=== PATIENT | female | born 1930 | race African-American/Black ===

== ENCOUNTER 2016-07-31 18:03 | Inpatient (IN) | payer MEDICARE, MEDICAID ==
[2016-07-31] MEDS ORDERED: hydrALAZINE IV* 20 MG/ML VIAL IV SLOW PU PRN (20:05)
--- NOTE | 2016-07-31 22:07 | RAD ---
Indication: RIGHT side abdominal pain radiating to the LEFT. Comparison: July 15, 2015 Technique: Supine and LEFT lateral decubitus abdomen views. Report: No evidence for free intraperitoneal air evident on the LEFT lateral decubitus view. Sewing needle morphology metallic foreign body at the level of the hepatic flexure of the colon. Multiple disc morphology metallic foreign bodies measuring up to 2 cm diameter at the level of the proximal transverse colon. No dilated bowel loops to indicate bowel obstruction. Unremarkable soft tissue contours. Nonspecific peripheral soft tissue calcifications. IMPRESSION: Multiple metallic foreign bodies including a needle likely within the RIGHT colon. No evidence for bowel obstruction or free intraperitoneal air.
--- NOTE | 2016-07-31 22:14 | HP ---
HISTORY AND PHYSICAL: DATE OF ADMISSION: 07/30/16 PRIMARY CARE PHYSICIAN: None. ATTENDING PHYSICIAN: Dr. Pura Jorge *(dictation provided by Estrella Magallanes, ENEDINA) . CHIEF COMPLAINT: Abdominal pain, nausea, vomiting. HISTORY OF PRESENT ILLNESS: Ms. Sorensen is an 85-year-old female with a past medical history of hypertension, coronary artery disease, and schizophrenia who presents to the hospital today with abdominal pain, nausea, and vomiting. In June of 2015, patient had laparoscopic surgery for a small bowel obstruction at which time a rolled up $[address] scan showed what appeared to be several coins in the bowel as well but these could not be identified during the surgery and it was felt that they would likely pass on their own. Ms. Sorensen is a reasonable historian, but her story is corroborated by that found in the medical records sent from [facility]. Per the report, Ms. Sorensen was in her normal state of health up until yesterday. It is reported that she was vomiting since midnight last evening. They transferred her to [facility] where she had a CT scan of the abdomen and pelvis, which showed concern for multilobar pneumonia and a small bowel obstruction with concern for presence of foreign body such as coins. In addition to these abnormal images, the patient has white blood cell count elevated to 23. The remainder of her labs are normal. Based on Ms. Sorensen' presentation with concern for small bowel obstruction and multilobar pneumonia with possible aspiration, Hospital Medicine was called for direct admission. PAST MEDICAL HISTORY: 1. Hypertension. 2. Coronary artery disease. 3. Dementia. 4. Schizophrenia. 5. History of PE. 6. History of abdominal surgery as a child. 7. History of exploratory laparotomy with lysis of adhesions, removal of foreign body, June 2015. MEDICATIONS: 1. Mylanta 30 mL p.o. q.4 hours p.r.n. 2. Ferrous sulfate 325 mg p.o. t.i.d. 3. Haloperidol 1 mg p.o. at bedtime. 4. Ibuprofen 600 mg p.o. q. 6 hours p.r.n. 5. Omeprazole 40 mg p.o. daily. 6. Senna 1 tab p.o. daily. 7. Vitamin E 400 units p.o. daily. 8. Amlodipine 10 mg p.o. daily. ALLERGIES: To TYLENOL. FAMILY HISTORY: Reviewed, noncontributory. SOCIAL HISTORY: No report of alcohol, tobacco, or drug use. The patient lives at the [facility] and states her sister is the healthcare proxy. REVIEW OF SYSTEMS: A 14-point review of systems was completed with Ms. Sorensen and all those not mentioned above were negative. PHYSICAL EXAMINATION GENERAL: Ms. Sorensen is lying in the bed. She is in no acute distress. She is calm and cooperative with my examination. VITAL SIGNS: Temperature 98.9, pulse rate 88, respiratory rate 16, O2 saturation 97% on room air, blood pressure 121/48. LUNGS: Somewhat diminished in the bases, but otherwise clear. There is good aeration. No accessory muscle use. HEART: S1, S2. No murmur, rub, or gallop and regular. ABDOMEN: Soft. There is tenderness to palpation along the right lower to mid quadrants. The belly is soft. Bowel sounds are hyperactive. EXTREMITIES: No cyanosis or edema. NEUROLOGIC: She is alert and oriented. She know she is in the hospital, but is unable to tell me that she is at [facility], otherwise she is clear and coherent with her answers. She moves all extremities equally. There is no facial asymmetry or focal weakness. Extraocular movements are intact. SKIN: Intact. DIAGNOSTIC STUDIES/LAB DATA: CBC and basic metabolic panel are pending up in the labs from [facility]. I note that her white blood cell count was 23. CT abdomen and pelvis from [facility] notes small bowel obstruction and concern for presence of foreign body likely coins. ASSESSMENT: Ms. Sorensen is an 85-year-old female who presents today to the hospital with concern for nausea, vomiting, abdominal pain with small bowel obstruction likely secondary to foreign body ingestion as well as question of multilobar pneumonia with possible aspiration. Our plans are for inpatient admission as I expect her length of stay to be greater than 2 days for the followin. Small bowel obstruction: The patient will be n.p.o. She will have an NG tube placed. Dr. Shearer from Surgery has been consulted and will be seeing her tomorrow. A follow up abdominal x-ray has been ordered for a.m. 2. Pneumonia: Our concern is that this is due to aspiration but certainly could also reflect the community-acquired pneumonia. The patient will have antibiotics with Levaquin and Flagyl. Her white blood cell count is elevated. Lactic acid was 1.7. It will be verified that she had blood cultures sent as well. 3. Dementia and schizophrenia. Plan to continue Haldol IV. 4. Hypertension. Plan to hold amlodipine and provide her with hydralazine p.r.n. 5. DVT prophylaxis. Heparin subcu. 6. Code status. Full code. 7. Disposition to medical floor. TIME SPENT: Approximately 60 minutes were spent on the admission of this patient, more than half of the time was spent with the patient at the bedside reviewing the events leading up to this hospitalization, performing the physical examination, and reviewing the plan of care. ESTRELLA MAGALLANES, ENEDINA [id number]/CPS #: [id number] Addendum: Abdominal xray this evening shows persistent coin like objects in patient's right lower quadrant as well as the appearance of a new needle in the mid right quadrant. Dr. Shearer was updated. [facility]
[2016-07-31] MEDS: Haloperidol INJ IV/IM* 5 MG/ML AMP IV SLOW PU SCH (22:56)
[2016-07-31] MEDS: NS 0.9% 1000 ML* 1,000 ML IV SCH (22:57)
[2016-07-31] MEDS: metroNIDAZOLE IV 500 MG/100ML* 500 MG/100 ML BAG IVPB SCH (22:57)
[2016-08-01] MEDS: Levofloxacin 750 MG IVPREMIX(* 750 MG/150 ML BAG IVPB SCH (01:01)
[2016-08-01] MEDS: Heparin VIAL(*) 5000 UNITS/ML VIAL (FIVE THOUSAND) SUBCUT SCH ×5 (01:02→23:26)
[2016-08-01 06:14] LABS: Hematocrit 29 % (35-47); Hemoglobin 9.1 g/dl (12.0-16.0); Mean Corpuscular HGB Conc 32 g/dl (31-36); Mean Corpuscular Hemoglobin 26 pg (27-31); Mean Corpuscular Volume 80 fL (80-97); Mean Platelet Volume 8 um3 (7.4-10.4); Red Blood Count 3.54 10^6/ul (4.0-5.4); Red Cell Distribution Width 17 % (10.5-15)
[2016-08-01] MEDS: metroNIDAZOLE IV 500 MG/100ML* 500 MG/100 ML BAG IVPB SCH ×3 (06:30→23:22)
[2016-08-01 08:12] LABS: BUN/Creatinine Ratio 13.9 (8-20); Calcium 8.3 mg/dL (8.6-10.3); EGFR African American 99.5 (>60); EGFR Non-African American 77.4 (>60); Potassium 4.1 mmol/L (3.5-5.0)
--- NOTE | 2016-08-01 08:25 | RAD ---
INDICATION: Foreign body ingestion COMPARISON: July 31, 2016 TECHNIQUE: Erect and supine views of the abdomen are submitted. FINDINGS: Bones: There are no acute bony findings. Soft tissues: The soft tissues appear normal. The psoas margins are sharp. Bowel gas pattern: Normal. No obstruction. No free air. Calcifications: There are no abnormal calcifications. Other: There are coins and/or button batteries projected over the right colon and there is a needle projected over the right colon. The position of these foreign bodies has not changed. IMPRESSION: MULTIPLE FOREIGN BODIES
--- NOTE | 2016-08-01 10:59 | PN ---
Subjective Date of Service: 08/01/16 Interval History: Patient seen and examined at bedside. Pt states that she is having abdominal pain. Pt denies eating any foreign objects such as coins or a sewing needle. Denies fever, chills, shortness of breath, chest discomfort, N/V/D. Family History: Unchanged from Admission Social History: Unchanged from Admission Past Medical History: Unchanged from Admission Objective Active Medications: Haloperidol Lactate (Haldol Inj Iv/Im*) 1 mg IV SLOW PU BEDTIME KARL Heparin Sodium (Porcine) (Heparin Vial(*)) 5,000 units SUBCUT Q8HR KARL Hydralazine HCl (Apresoline Iv*) 5 mg IV SLOW PU Q6H PRN Reason: SBP > 185 Levofloxacin/Dextrose (Levaquin 750 Mg Ivpremix(*)) 750 mg in 150 mls @ 100 mls /hr IVPB Q24H KARL Metronidazole/Sodium Chloride (Flagyl 500 Mg Ivpb*) 500 mg in 100 mls @ 100 mls /hr IVPB Q8H KARL Sodium Chloride (Ns 0.9% 1000 Ml*) 1,000 mls @ 125 mls/hr IV PER RATE [facility] Vital Signs 07/31/16 07/31/16 07/31/16 18:34 18:43 18:52 Temperature 98.9 F Pulse Rate 88 Respiratory 16 16 18 Rate Blood Pressure 121/48 (mmHg) O2 Sat by Pulse 97 Oximetry 07/31/16 07/31/16 07/31/16 20:00 23:50 23:55 Temperature 98 F Pulse Rate 89 Respiratory 16 16 Rate Blood Pressure 128/52 (mmHg) O2 Sat by Pulse 97 Oximetry 08/01/16 08/01/16 02:41 07:35 Temperature 98.0 F 98.5 F Pulse Rate 90 86 Respiratory 16 18 Rate Blood Pressure 114/45 127/52 (mmHg) O2 Sat by Pulse 97 98 Oximetry Oxygen Devices in Use Now: None Appearance: NAD, laying in bed. Eyes: No Scleral Icterus, PERRLA Ears/Nose/Mouth/Throat: NL Teeth, Lips, Gums, Mucous Membranes Moist Neck: NL Appearance and Movements; NL JVP, Trachea Midline Respiratory: Symmetrical Chest Expansion and Respiratory Effort, Clear to Auscultation - , diminished. Cardiovascular: NL Sounds; No Murmurs; No JVD, RRR Abdominal: - - Bowel sounds prresent, abdomen large, soft, tender. Extremities: No Edema Skin: No Rash or Ulcers Neurological: NL Muscle Strength and Tone, - - Alert and Oriented to Person and Place. Consufed. Lines/Tubes/Other Access: Clean, Dry and Intact Peripheral IV - site benign. Result Diagrams: 08/01/16 05:47 08/01/16 05:47 Assess/Plan/Problems-Billing Assessment: Ms. Sorensen is am 85 yo female with PMH significant for dementia, CAD, HTN and schizophrenia who presented to [facility] with complaints of vomiting and abdominal pain who was found to have a small bowel obstruction likely secondary to foreign body ingestion and possible multilobar PNA with possible aspiration. - Patient Problems (1) SBO (small bowel obstruction) Code(s): K56.69 - OTHER INTESTINAL OBSTRUCTION SNOMED Code(s): 815051618 Comment: - NPO, except ice chips. Pt continues to have abdominal pain, but no furhter nausea or vomiting. Will hold on NG tube placement at this time. - Surgery consult, input appreciated. - Pt has a hx of Ex-lap 06/29/15 where an obstructing $2 bill was identified. The coins that were seen on imaging prior were still present on repeat imaging 07/15. - GI consult pending. - Will check a KUB in the AM. (2) Pneumonia Code(s): J18.9 - PNEUMONIA, UNSPECIFIED ORGANISM SNOMED Code(s): 960232942 Comment: Afebrile. Continues to have leukocytosis, but improved from yesterdays labs. Concern for aspiration PNA vs community acquired PNA. Continue levaquin and Flagyl. (3) HTN (hypertension) Code(s): I10 - ESSENTIAL (PRIMARY) HYPERTENSION SNOMED Code(s): 92109579 Comment: SBP 110s-120s. Hold amlodipine while NPO. Continue Hydralazine PRN for SBP > 185. (4) GERD (gastroesophageal reflux disease) Code(s): K21.9 - GASTRO-ESOPHAGEAL REFLUX DISEASE WITHOUT ESOPHAGITIS SNOMED Code(s): 839291931 Comment: Hold home omeprazole. Will start IV Protonix while not taking PO. (5) Dementia Code(s): F03.90 - UNSPECIFIED DEMENTIA WITHOUT BEHAVIORAL DISTURBANCE SNOMED Code(s): 55572146 Comment: - Supportive care. Re-orient as needed. - May need SNF for closer monitoring as she ate foreign objects that possibly caused her obstruction. (6) Schizophrenia Code(s): F20.9 - SCHIZOPHRENIA, UNSPECIFIED SNOMED Code(s): 58540031 Comment: - Stable. Monitor. - Continue IV Haldol at bedtime. Will change to PO once able to take PO. (7) DVT prophylaxis Code(s): BMS2026 - SNOMED Code(s): 806745372 Comment: Continue SQ heparin (8) Full code status Code(s): Z78.9 - OTHER SPECIFIED HEALTH STATUS SNOMED Code(s): 578738194 Status and Disposition: Inpatient. Estimated LOS > 2 days. Discharge back to [facility] when medically stable.
--- NOTE | 2016-08-01 15:23 | CONS ---
CC: [facility] CONSULTATION REPORT: DATE OF CONSULT: 08/01/16 LOCATION: Room 416 at [facility]. HISTORY OF PRESENT ILLNESS: Surgical department was contacted to evaluate Ms. Sorensen, an 85-year-o ld female, retirement patient, with schizophrenia, who was found to have nausea, vomiting, and abd ominal pain while at the home on 07/31/16, was sent to the emergency room at [facility]. Wor kup including a CAT scan was suggestive of foreign bodies within the right lower quadrant. Consider ation for the patient having small bowel obstruction secondary to this was entertained and the patie nt was transferred to our institution for additional surgical evaluation. The patient states that she has right lower quadrant pain, radiates to her back, on both the left an d right. She does have an appetite. She is passing gas from below. The patient is otherwise a poor historian and the record is reviewed from her ER visit. There was additional consideration of possible pneumonia and the patient is currently on levofloxaci n and metronidazole. PAST MEDICAL HISTORY: Schizophrenia, dementia, coronary artery disease, hypertension, history of PE in the past. PAST SURGICAL HISTORY: Review of the record shows the patient went to the operating room for a fore ign body and a small bowel obstruction 2 years ago, was noted to have a two-dollar bill in the dista l ileum. This was removed and primarily closed. No coins or button batteries were found at that ti me when that was the active concern. The patient did improve and was discharged home in June of 2015. At that time, she underwent a McBurney's incision by Dr. Portillo and lysis of adhesions as we ll as the removal of the two-dollar bill. Surgical history includes a lower midline incision of unclear reason. PHYSICAL EXAM: She is afebrile. Her vital signs are stable. An NG tube may have been placed with 400 cc output. It is currently not in. She is voiding and she did have a small bowel movement toda y. She is alert, she is oriented x3. She answers questions appropriately. Her abdomen is soft, no ndistended, tender in the right lower quadrant without rebound. Hyperactive bowel sounds are apprec iated. Lower midline incision that poorly healed is appreciated as well as a newer McBurney's incisi on. No skin changes. DIAGNOSTIC STUDIES/LAB DATA: Labs were reviewed, shows an elevated white count of 16 with left shif t, H and H 04/16. Chemistry panel reviewed within normal limits. The patient's CAT scan is reviewed along with radiologist, along with a CT scan from 2 years ago. T his shows foreign bodies overlying the cecum consistent with coins or button batteries along with a needle. There is no free air or free fluid. There was concern for a mid proximal small bowel obstru ction based on the report from the initial study done at [place], reviewing it now, we do not appre ciate that. IMPRESSION AND PLAN: An 85-year-old female, not a DNR, who is a retirement patient with schizophr enia with return to our institution with again foreign bodies overlying the right lower quadrant. I t is unclear if these already have extended through the cecal wall over a long-term. The patient do es not show signs of sepsis or obstruction at this time, but may benefit from a right colectomy if w e feel that this will improve her situation. I would, however, like the patient to undergo a colono scopy prior to this intervention to see if there are any findings within the cecum to prove erosion of the longstanding foreign bodies the patient seems to be dealing with. We will continue to follow her. She can be started on ice chips, recommend Gastroenterology evaluation, the patient may requi re more urgent surgery. I think we should have a repeat of her white count in the morning and contin ue antibiotics for there is concern of pneumonia. [id number]/[facility] #: [id number]
[2016-08-01] MEDS: NS 0.9% 1000 ML* 1,000 ML IV SCH (16:50)
[2016-08-01] MEDS ORDERED: Morphine INJ* 2 MG/ML 1 ML CARPUJECT IV PRN (17:55)
[2016-08-01 18:40] LABS: Albumin 2.8 g/dL (3.2-5.2); C Reactive Protein 187.34 mg/L (< 5.00); Direct Bilirubin 0.1 mg/dL (0.03-0.18); Globulin 3.2 g/dL (2-4); Indirect Bilirubin 0.1 mg/dL (0.3-1.0); Total Bilirubin 0.2 mg/dL (0.2-1.0)
[2016-08-01] MEDS: Polyethylene Glycol 3350* 17 GM PACKET PO SCH ×3 (19:25→21:23)
[2016-08-01] MEDS: Haloperidol INJ IV/IM* 5 MG/ML AMP IV SLOW PU SCH (23:24)
[2016-08-02] MEDS: Levofloxacin 750 MG IVPREMIX(* 750 MG/150 ML BAG IVPB SCH ×2 (00:41→22:38)
[2016-08-02] MEDS: Heparin VIAL(*) 5000 UNITS/ML VIAL (FIVE THOUSAND) SUBCUT SCH ×3 (05:26→21:35)
[2016-08-02] MEDS: metroNIDAZOLE IV 500 MG/100ML* 500 MG/100 ML BAG IVPB SCH ×2 (07:51→16:23)
[2016-08-02] MEDS: NS 0.9% 1000 ML* 1,000 ML IV SCH ×2 (07:51→19:06)
--- NOTE | 2016-08-02 07:54 | RAD ---
INDICATION: Foreign bodies COMPARISON: Abdominal series August 01, 2016 TECHNIQUE: Erect and supine views of the abdomen are submitted. FINDINGS: Bones: There are no acute bony findings. Soft tissues: The soft tissues appear normal. The psoas margins are sharp. Bowel gas pattern: Normal Calcifications: There are no abnormal calcifications. Other: Multiple foreign bodies project over the right abdomen. The rounded foreign bodies are unchanged in position. The needle now projects more caudal in location presumably within the cecum. There is no obstruction or free air. IMPRESSION: RIGHT-SIDED FOREIGN BODIES DESCRIBED.
--- NOTE | 2016-08-02 08:20 | PN ---
Subjective Date of Service: 08/02/16 Interval History: Patient seen and examined at bedside. Pt states that she continues to have right -sided abdominal pain. Denies fever, chills, shortness of breath, chest discomfort, N/V/D. Pt states that she moved her bowels this morning. Family History: Unchanged from Admission Social History: Unchanged from Admission Past Medical History: Unchanged from Admission Objective Active Medications: Haloperidol Lactate (Haldol Inj Iv/Im*) 1 mg IV SLOW PU BEDTIME KARL Heparin Sodium (Porcine) (Heparin Vial(*)) 5,000 units SUBCUT Q8HR KARL Hydralazine HCl (Apresoline Iv*) 5 mg IV SLOW PU Q6H PRN Reason: SBP > 185 Sodium Chloride (Ns 0.9% 1000 Ml*) 1,000 mls @ 125 mls/hr IV PER RATE KARL Levofloxacin/Dextrose (Levaquin 750 Mg Ivpremix(*)) 750 mg in 150 mls @ 100 mls /hr IVPB 2300 KARL Metronidazole/Sodium Chloride (Flagyl 500 Mg Ivpb*) 500 mg in 100 mls @ 100 mls /hr IVPB 0000,0800,1600 KARL Morphine Sulfate (Morphine Inj (Syringe)*) 2 mg IV Q4H PRN Reason: PAIN Pantoprazole Sodium (Protonix Iv*) 40 mg IV DAILY KARL Vital Signs 08/01/16 08/01/16 08/01/16 15:24 20:00 23:55 Temperature 98.1 F 98.4 F Pulse Rate 90 86 Respiratory 18 18 16 Rate Blood Pressure 144/54 127/56 (mmHg) O2 Sat by Pulse 100 99 Oximetry 08/02/16 07:25 Temperature 98.4 F Pulse Rate 77 Respiratory 16 Rate Blood Pressure 135/46 (mmHg) O2 Sat by Pulse 99 Oximetry Oxygen Devices in Use Now: None Appearance: NAD, laying in bed. Eyes: No Scleral Icterus, PERRLA Ears/Nose/Mouth/Throat: NL Teeth, Lips, Gums, Mucous Membranes Moist Neck: NL Appearance and Movements; NL JVP, Trachea Midline Respiratory: Symmetrical Chest Expansion and Respiratory Effort, Clear to Auscultation Cardiovascular: NL Sounds; No Murmurs; No JVD, RRR Abdominal: - - Bowel sounds present, abdomen soft, tender on the right side. Extremities: No Edema Skin: No Rash or Ulcers Neurological: Alert and Oriented x 3 - Thinks she is at [facility], knows the month, but not the year., NL Muscle Strength and Tone Lines/Tubes/Other Access: Clean, Dry and Intact Peripheral IV - site benign. Nutrition: Taking PO's Result Diagrams: 08/02/16 08:17 08/01/16 05:47 Microbiology and Other Data: Microbiology 08/01/16 21:20 Stool Occult Blood (LWAANDA) - Final Stool 08/01/16 11:30 Nasal Screen MRSA (PCR)(LAWANDA) - Final Nasal Mrsa Negative Assess/Plan/Problems-Billing Assessment: Ms. Sorensen is am 85 yo female with PMH significant for dementia, CAD, HTN and schizophrenia who presented to [facility] with complaints of vomiting and abdominal pain who was found to have a small bowel obstruction likely secondary to foreign body ingestion and possible multilobar PNA with possible aspiration. - Patient Problems (1) SBO (small bowel obstruction) Code(s): K56.69 - OTHER INTESTINAL OBSTRUCTION SNOMED Code(s): 475885939 Comment: - Afebrile, leukocytosis improving. - NPO, except ice chips. Pt continues to have abdominal pain, but no furhter nausea or vomiting. Will hold on NG tube placement at this time. - Surgery consult, input appreciated. - Pt has a hx of Ex-lap 06/29/15 where an obstructing $2 bill was identified. The coins that were seen on imaging prior were still present on repeat imaging 07/15. - GI consult pending. - KUB this AM shows foreign objects on right side, no bowel obstruction. (2) Pneumonia Code(s): J18.9 - PNEUMONIA, UNSPECIFIED ORGANISM SNOMED Code(s): 128524113 Comment: Afebrile. Continues to have leukocytosis, but improving. Concern for aspiration PNA vs community acquired PNA. Continue levaquin and Flagyl. (3) HTN (hypertension) Code(s): I10 - ESSENTIAL (PRIMARY) HYPERTENSION SNOMED Code(s): 09276869 Comment: SBP 120s-140s. Hold amlodipine while NPO. Continue Hydralazine PRN for SBP > 185. (4) GERD (gastroesophageal reflux disease) Code(s): K21.9 - GASTRO-ESOPHAGEAL REFLUX DISEASE WITHOUT ESOPHAGITIS SNOMED Code(s): 858431113 Comment: Hold home omeprazole. Continue IV Protonix while not taking PO. (5) Dementia Code(s): F03.90 - UNSPECIFIED DEMENTIA WITHOUT BEHAVIORAL DISTURBANCE SNOMED Code(s): 84914116 Comment: - Supportive care. Re-orient as needed. - May need SNF for closer monitoring as she ate foreign objects that possibly caused her obstruction. (6) Schizophrenia Code(s): F20.9 - SCHIZOPHRENIA, UNSPECIFIED SNOMED Code(s): 09878347 Comment: - Stable. Monitor. - Continue IV Haldol at bedtime. Will change to PO once able to take PO. (7) DVT prophylaxis Code(s): ARX5824 - SNOMED Code(s): 414158337 Comment: Continue SQ heparin (8) Full code status Code(s): Z78.9 - OTHER SPECIFIED HEALTH STATUS SNOMED Code(s): 680756232 Status and Disposition: Inpatient. Estimated LOS > 2 days. Discharge back to the [facility] or [facility] when medically stable.
[2016-08-02 08:43] LABS: Hematocrit 28 % (35-47); Hemoglobin 8.9 g/dl (12.0-16.0); Mean Corpuscular HGB Conc 31 g/dl (31-36); Mean Corpuscular Hemoglobin 25 pg (27-31); Mean Corpuscular Volume 81 fL (80-97); Mean Platelet Volume 8 um3 (7.4-10.4); Red Blood Count 3.52 10^6/ul (4.0-5.4); Red Cell Distribution Width 17 % (10.5-15)
[2016-08-02] MEDS: Pantoprazole IV* 40 MG IV SCH (09:16)
--- NOTE | 2016-08-02 11:42 | PN ---
Progress Note - Progress Note SOAP: Subjective: [Pt seen and examined. Feels better today. no nausea. Positive appetite. Objective: af vss abdo: soft/ND/ tender at RLQ w/o rebound labs noted. WBC and CRP down slightly Assessment: 1. Ingestion of foreign bodies unknown timeline 2. Pneumonia It is unclear if pt need removal of these which would likley amount to a R hemicolectomy Plan: GI consult, for C scope before any surg intervention ? consent is gained through pt or [facility]? abs will follow
[2016-08-02] MEDS ORDERED: PEG 3000 GI LAVAGE* 1 GALLON PO SCH (15:00)
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
[2016-08-02] MEDS: Haloperidol INJ IV/IM* 5 MG/ML AMP IV SLOW PU SCH (21:35)
[2016-08-03] MEDS: metroNIDAZOLE IV 500 MG/100ML* 500 MG/100 ML BAG IVPB SCH ×4 (00:36→20:57)
[2016-08-03] MEDS: Heparin VIAL(*) 5000 UNITS/ML VIAL (FIVE THOUSAND) SUBCUT SCH ×3 (05:39→20:57)
[2016-08-03 05:51] LABS: Hematocrit 29 % (35-47); Hemoglobin 9.2 g/dl (12.0-16.0); Mean Corpuscular HGB Conc 32 g/dl (31-36); Mean Corpuscular Hemoglobin 26 pg (27-31); Mean Corpuscular Volume 80 fL (80-97); Mean Platelet Volume 8 um3 (7.4-10.4); Red Blood Count 3.58 10^6/ul (4.0-5.4); Red Cell Distribution Width 16 % (10.5-15); White Blood Count 10.5 10^3/ul (3.5-10.8)
[2016-08-03 06:11] LABS: Albumin 3.1 g/dL (3.2-5.2); BUN/Creatinine Ratio 4.9 (8-20); C Reactive Protein 128.93 mg/L (< 5.00); Calcium 8.8 mg/dL (8.6-10.3); EGFR African American 120.5 (>60); EGFR Non-African American 93.7 (>60); Globulin 3.7 g/dL (2-4); Total Bilirubin 0.2 mg/dL (0.2-1.0); Total Protein 6.8 g/dL (6.4-8.9)
[2016-08-03] MEDS: NS 0.9% 1000 ML* 1,000 ML IV SCH (06:18)
[2016-08-03 08:10] LABS: Magnesium 1.7 mg/dL (1.9-2.7)
[2016-08-03] MEDS: Pantoprazole IV* 40 MG IV SCH (08:26)
[2016-08-03] MEDS: KCL 20 MEQ/100 ML IVPREMIX* 20 MEQ/100 ML BAG IV SCH ×2 (09:45→17:26)
[2016-08-03] MEDS ORDERED: Magnesium Sulfate 2 GM IV* 2 GM/50 ML BAG IVPB ONE ×2 (10:33→18:30)
--- NOTE | 2016-08-03 10:39 | PN ---
Subjective Date of Service: 08/03/16 Interval History: Patient seen and examined at bedside. Pt states that she is feeling well today, but continues to have right sided abdominal pain. Denies fever, chills, shortness of breath, chest discomfort, N/V. Family History: Unchanged from Admission Social History: Unchanged from Admission Past Medical History: Unchanged from Admission Objective Active Medications: Haloperidol Lactate (Haldol Inj Iv/Im*) 1 mg IV SLOW PU BEDTIME KARL Heparin Sodium (Porcine) (Heparin Vial(*)) 5,000 units SUBCUT Q8HR KARL Hydralazine HCl (Apresoline Iv*) 5 mg IV SLOW PU Q6H PRN Reason: SBP > 185 Sodium Chloride (Ns 0.9% 1000 Ml*) 1,000 mls @ 125 mls/hr IV PER RATE KARL Levofloxacin/Dextrose (Levaquin 750 Mg Ivpremix(*)) 750 mg in 150 mls @ 100 mls /hr IVPB 2300 KARL Metronidazole/Sodium Chloride (Flagyl 500 Mg Ivpb*) 500 mg in 100 mls @ 100 mls /hr IVPB 0000,0800,1600 KARL Potassium Chloride (Potassium Chloride 20 Meq/100 Ml Ivpremix*) 20 meq in 100 mls @ 50 mls/hr IV Q2H [facility] Stop: 08/03/16 11:59 Magnesium Sulfate (Magnesium Sulfate 2 Gm Iv*) 2 gm in 50 mls @ 50 mls/hr IVPB ONCE ONE Stop: 08/03/16 11:32 Morphine Sulfate (Morphine Inj (Syringe)*) 2 mg IV Q4H PRN Reason: PAIN Pantoprazole Sodium (Protonix Iv*) 40 mg IV DAILY [facility] Vital Signs 08/02/16 08/02/16 08/02/16 16:11 20:00 23:26 Temperature 97.8 F Pulse Rate 82 83 Respiratory 18 18 16 Rate Blood Pressure 159/52 139/50 (mmHg) O2 Sat by Pulse 100 100 Oximetry Oxygen Devices in Use Now: None Appearance: NAD, laying in bed. Eyes: No Scleral Icterus, PERRLA Ears/Nose/Mouth/Throat: NL Teeth, Lips, Gums, Mucous Membranes Moist Neck: NL Appearance and Movements; NL JVP, Trachea Midline Respiratory: Symmetrical Chest Expansion and Respiratory Effort, Clear to Auscultation Cardiovascular: NL Sounds; No Murmurs; No JVD, RRR Abdominal: - - Bowel sounds present, Abdomen soft with tenderness on the right side. Extremities: No Edema Skin: No Rash or Ulcers Neurological: NL Muscle Strength and Tone, - - Alert and Oriented to Person and Place. Lines/Tubes/Other Access: Clean, Dry and Intact Peripheral IV - site benign. Nutrition: Taking PO's Result Diagrams: 08/03/16 05:36 08/03/16 05:36 Microbiology and Other Data: Microbiology 08/01/16 21:20 Stool Occult Blood (LAWANDA) - Final Stool 08/01/16 11:30 Nasal Screen MRSA (PCR)(LAWANDA) - Final Nasal Mrsa Negative Assess/Plan/Problems-Billing Assessment: Ms. Sorensen is am 85 yo female with PMH significant for dementia, CAD, HTN and schizophrenia who presented to [facility] with complaints of vomiting and abdominal pain who was found to have a small bowel obstruction likely secondary to foreign body ingestion and possible multilobar PNA with possible aspiration. - Patient Problems (1) SBO (small bowel obstruction) Code(s): K56.69 - OTHER INTESTINAL OBSTRUCTION SNOMED Code(s): 542026775 Comment: - Afebrile, leukocytosis resolved. - NPO, except ice chips. Pt continues to have abdominal pain, but no furhter nausea or vomiting. Will hold on NG tube placement at this time. - Surgery consult, input appreciated. - Pt has a hx of Ex-lap 06/29/15 where an obstructing $2 bill was identified. The coins that were seen on imaging prior were still present on repeat imaging 07/15. - KUB 08/02 shows foreign objects on right side, no bowel obstruction. - GI consult. Plan for a colonoscopy today. (2) Pneumonia Code(s): J18.9 - PNEUMONIA, UNSPECIFIED ORGANISM SNOMED Code(s): 421939086 Comment: Afebrile. Leukocytosis resolved. Concern for aspiration PNA vs community acquired PNA. Continue levaquin and Flagyl. (3) HTN (hypertension) Code(s): I10 - ESSENTIAL (PRIMARY) HYPERTENSION SNOMED Code(s): 30082237 Comment: SBP 130s-150s. Hold amlodipine while NPO. Continue Hydralazine PRN for SBP > 185. (4) GERD (gastroesophageal reflux disease) Code(s): K21.9 - GASTRO-ESOPHAGEAL REFLUX DISEASE WITHOUT ESOPHAGITIS SNOMED Code(s): 677394620 Comment: Hold home omeprazole. Continue IV Protonix while not taking PO. (5) Dementia Code(s): F03.90 - UNSPECIFIED DEMENTIA WITHOUT BEHAVIORAL DISTURBANCE SNOMED Code(s): 75837270 Comment: - Supportive care. Re-orient as needed. - May need SNF for closer monitoring as she ate foreign objects that possibly caused her obstruction. (6) Schizophrenia Code(s): F20.9 - SCHIZOPHRENIA, UNSPECIFIED SNOMED Code(s): 99347944 Comment: - Stable. Monitor. - Continue IV Haldol at bedtime. Will change to PO once able to take PO. (7) DVT prophylaxis Code(s): JJD9867 - SNOMED Code(s): 783807090 Comment: Continue SQ heparin (8) Full code status Code(s): Z78.9 - OTHER SPECIFIED HEALTH STATUS SNOMED Code(s): 906249794 Status and Disposition: Inpatient. Estimated LOS > 2 days. Discharge back to the [facility] or [facility] when medically stable.
[2016-08-03] MEDS ORDERED: Midazolam* 1 MG/ML 10 ML VIAL (10 MG) ONE (13:58)
[2016-08-03] MEDS ORDERED: Meperidine SYRINGE* 50 MG/ML ONE (13:58)
--- NOTE | 2016-08-03 14:45 | RAD ---
INDICATION: Foreign bodies. COMPARISON: Comparison is made with a prior study from one day earlier. TECHNIQUE: Supine and upright views of the abdomen were obtained. FINDINGS: There are several metallic foreign bodies present in the right lower quadrant. One of the metallic foreign bodies appears to represent a pin. These are likely located within the cecum and ascending colon and appear similar in position to the prior exam. The small bowel and colon appear nondistended. There are scattered air-fluid levels within the small bowel and colon. No free intraperitoneal air is seen. IMPRESSION: FOREIGN BODIES IN THE RIGHT LOWER QUADRANT UNCHANGED SIGNIFICANTLY IN POSITION FROM THE PRIOR STUDY LIKELY WITHIN THE CECUM AND ASCENDING COLON.
[2016-08-03] MEDS: Potassium Chloride LIQUID* 20 MEQ PACKET PO SCH ×2 (17:21→20:57)
[2016-08-03] MEDS ORDERED: Potassium Chloride LIQUID* 20 MEQ PACKET PO ONE (17:24)
[2016-08-03] MEDS ORDERED: Potassium Chloride LIQUID* 20 MEQ PACKET ONE (17:28)
--- NOTE | 2016-08-03 18:31 | RAD ---
Indication: Follow-up radiopaque foreign bodies. Comparison: 1325 hours exam of the same date and July 31, 2016 CT. Technique: Supine and upright views of the abdomen. Report: Multiple discs shape radiopaque foreign bodies measuring approximate 2 cm diameter are visualized at the hepatic flexure of the colon and some of the similar-shaped radiopaque foreign bodies have propagated to the level of the descending colon. The enteric needle has propagated to level of the sigmoid colon. No evidence for free intraperitoneal air. No significantly dilated bowel loops or air-fluid levels. Unremarkable soft tissue contours. IMPRESSION: Interval distal propagation of the radiopaque foreign bodies as described.
[2016-08-03] MEDS: Haloperidol INJ IV/IM* 5 MG/ML AMP IV SLOW PU SCH (20:57)
--- NOTE | 2016-08-03 21:59 | PRO ---
DATE: 08/03/16 - Inpatient room #416-02 REFERRING PHYSICIAN: Sam Preciado MD.* PROCEDURE: Colonoscopy and foreign body removal from cecum, pennies and sewing needle. INDICATION: This 85-year-old woman who had nausea and vomiting in her halfway and found to have a white count of 23,000 in the [facility] along with foreign bodies in the cecum appearing consistent with coins and a needle in a separate right abdominal location, comes in for assessment prior to possible surgery. With MiraLAX over the last 48 hours, the coins have remained in the same location, whereas the needle has rotated and apparently moved and today is coincident with the coins demonstrating that it is moving. She has been afebrile in the hospital with her white count falling from 16 to 14 to 10. She has not protested at all about being n.p.o. or given preparation fluid. This admission her hemoglobin has been 9.2 and albumin 3.1, down from 11.1 and 4.0 in February 2016. Today she is alert, somewhat feisty, though gives consent for the procedure. This was communicated to her sister also. ENDOSCOPIST: Dr. Hyde. MEDICATIONS: Midazolam 2, meperidine 25. FINDINGS: She is a substantially overweight elderly black female in no overt distress. She had complained variably of right-sided or left-sided abdominal pain while here. Perianal inspection shows edematous tissues, hemorrhoids and skin tags. Sphincter tone is reduced but there is intolerance. Initial views show a good prep, a fair amount of dark brown clearly liquid material but no solid stool and no seeds. Lavage was possible. The sigmoid was quite gnarled and scarred with some diverticula and narrow angulations. Getting around the mid upper sigmoid was very challenging with some floppiness and hyperacute angles. A pediatric scope might have been an advantage, though with uncertainties about the prep, the adult scope had been chosen. No foreign bodies were seen on the left side. Once into the descending colon, after about 30 minutes passage through the cecum was readily obtained. Cecum was washed clear and round metal foreign bodies that turned out to be pennies, 3 were identified. The needle was lying over them. The pennies were lustrous, as if polished. The needle had an oxidized black surface with the eye evident. It was elected to grab the pennies with a retrieval net and bring them over to the left colon, so they would no longer be gravitationally trapped where they were and then deposit them. One would then go back and attempt to see the ileum and grab the needle, which was a higher priority to withdraw if possible. At the base of the cecum, there was no ulcer or injury noted. The ileocecal valve was rather tight and taut, and about 2 or 3 cm of terminal ileum could be seen. No abnormality was seen, though views of the terminal ileum were quite limited and free intubation and view of the segment was not obtained. Nonetheless, there was no foreign body seen. The needle was grasped with a biopsy forceps and brought out trying to keep the tips away from the armendariz. The stiffness of this configuration; however, proved to be a problem in the left colon and a change was made for a snare grasping the needle near one end. This allowed some advancement down below the level of the pennies and then the needle became burrowed into the side wall as with motility and floppiness, one could not avoid having that happen. The snare was temporarily trapped but wiggling it in an extended position, it came away from the needle. The biopsy forceps was used again to try to steer it through the sigmoid but this proved to be not possible. After some further manipulations, it was determined that with both foreign bodies, were free in the lumen and the needle one end heading downstream, circumstances are optimal for spontaneous passage of the objects. There was some bruising trauma to the upper sigmoid from all of this (mostly scope passage and it seemed imprudent to go back with the retrieval net for the pennies. IMPRESSION: 1. Left colonic diverticulosis with scarring. 2. Ingested pennies - removed from cecum, deposited in sigmoid and can be monitored via periodic x-rays. 3. Ingested needle - moved to the sigmoid and can be monitored with x-rays. Some bruising was noted but no clear-cut transmural injury. At this point, it would seem reasonable to continue to monitor the declining white count and CRP. Start a full liquid diet and follow x-rays. It is not clear to me that the foreign bodies in question contributed to the clinical illness. While nausea, vomiting and white count of 23,000 could have been from a penetrating foreign body, it would seem unlikely that a needle having caused that would spontaneously resolve itself and pass down into the colon. The pennies were not an issue as the cecal mucosa appears healthy. Nonetheless, she is responding to antibiotic treatment and it appeared she can be fed and followed. [id number]/[facility] #: [id number] MTDD
[2016-08-03] MEDS: Levofloxacin 750 MG IVPREMIX(* 750 MG/150 ML BAG IVPB SCH (23:56)
[2016-08-04] MEDS: metroNIDAZOLE IV 500 MG/100ML* 500 MG/100 ML BAG IVPB SCH ×3 (04:18→20:26)
[2016-08-04] MEDS: Heparin VIAL(*) 5000 UNITS/ML VIAL (FIVE THOUSAND) SUBCUT SCH ×3 (06:25→21:19)
[2016-08-04 06:45] LABS: Hematocrit 26 % (35-47); Hemoglobin 8.6 g/dl (12.0-16.0); Mean Corpuscular HGB Conc 33 g/dl (31-36); Mean Corpuscular Hemoglobin 26 pg (27-31); Mean Corpuscular Volume 80 fL (80-97); Mean Platelet Volume 8 um3 (7.4-10.4); Red Blood Count 3.31 10^6/ul (4.0-5.4); Red Cell Distribution Width 17 % (10.5-15); White Blood Count 10.8 10^3/ul (3.5-10.8)
[2016-08-04 07:02] LABS: BUN/Creatinine Ratio 4.6 (8-20); Calcium 8.6 mg/dL (8.6-10.3); Potassium 3.4 mmol/L (3.5-5.0)
[2016-08-04] MEDS: Pantoprazole IV* 40 MG IV SCH ×2 (08:27→08:59)
[2016-08-04] MEDS: Potassium Chloride LIQUID* 20 MEQ PACKET PO SCH ×3 (08:27→15:28)
[2016-08-04] MEDS: Omeprazole CAP* 20 MG PO SCH (09:11)
--- NOTE | 2016-08-04 15:42 | PN ---
Subjective Date of Service: 08/04/16 Interval History: Patient seen and examined at bedside. Pt continues to complain of right sided abdominal pain. Denies fever, chills, shortness of breath, chest discomfort, N/V /D. Per NSG staff Pt passed 3 Pennies today. She also had a stool this AM, that no foreign objects were found in. Family History: Unchanged from Admission Social History: Unchanged from Admission Past Medical History: Unchanged from Admission Objective Active Medications: Haloperidol Lactate (Haldol Inj Iv/Im*) 1 mg IV SLOW PU BEDTIME KARL Heparin Sodium (Porcine) (Heparin Vial(*)) 5,000 units SUBCUT Q8HR KARL Heparin Sodium (Porcine) (Heparin Flush Picc/Ml/Cvc(*)) 1 - 3 ml FLUSH 0600, 1800 [facility] Reason: Protocol Hydralazine HCl (Apresoline Iv*) 5 mg IV SLOW PU Q6H PRN Reason: SBP > 185 Levofloxacin/Dextrose (Levaquin 750 Mg Ivpremix(*)) 750 mg in 150 mls @ 100 mls /hr IVPB 2300 KARL Metronidazole/Sodium Chloride (Flagyl 500 Mg Ivpb*) 500 mg in 100 mls @ 100 mls /hr IVPB Q8H KAR[facility] Morphine Sulfate (Morphine Inj (Syringe)*) 2 mg IV Q4H PRN Reason: PAIN Omeprazole (Prilosec Cap*) 40 mg PO DAILY KARL Potassium Chloride (Klor-Con Liquid*) 20 meq PO Q4H [facility] Stop: 08/04/16 16:01 Vital Signs 08/03/16 08/03/16 08/03/16 16:27 16:57 19:42 Temperature 97.8 F 97.8 F 98.3 F Pulse Rate 78 78 87 Respiratory 16 16 18 Rate Blood Pressure 157/79 157/79 133/61 (mmHg) O2 Sat by Pulse 100 100 100 Oximetry 08/03/16 08/03/16 08/04/16 20:00 23:09 03:42 Temperature 97.2 F 98.1 F Pulse Rate 84 85 Respiratory 18 16 16 Rate Blood Pressure 133/52 149/61 (mmHg) O2 Sat by Pulse 99 100 Oximetry 08/04/16 07:12 Temperature 99.3 F Pulse Rate 95 Respiratory 16 Rate Blood Pressure 150/56 (mmHg) O2 Sat by Pulse 98 Oximetry Oxygen Devices in Use Now: None Appearance: NAD, sitting up in bed. Eyes: No Scleral Icterus, PERRLA Ears/Nose/Mouth/Throat: NL Teeth, Lips, Gums, Mucous Membranes Moist Neck: NL Appearance and Movements; NL JVP Respiratory: Symmetrical Chest Expansion and Respiratory Effort, Clear to Auscultation Cardiovascular: NL Sounds; No Murmurs; No JVD, RRR Abdominal: - - Bowel sounds present, abdomen soft, tender on the right side. Extremities: No Edema Skin: No Rash or Ulcers Neurological: - - Alert and Oriented to person and place. Lines/Tubes/Other Access: Clean, Dry and Intact Other Access - Midline, patent and benign. Nutrition: Taking PO's Result Diagrams: 08/04/16 05:53 08/04/16 05:53 Microbiology and Other Data: Microbiology 08/01/16 21:20 Stool Occult Blood (LAWANDA) - Final Stool 08/01/16 11:30 Nasal Screen MRSA (PCR)(LAWANDA) - Final Nasal Mrsa Negative Assess/Plan/Problems-Billing Assessment: Ms. Sorensen is am 85 yo female with PMH significant for dementia, CAD, HTN and schizophrenia who presented to [facility] with complaints of vomiting and abdominal pain who was found to have a small bowel obstruction likely secondary to foreign body ingestion and possible multilobar PNA with possible aspiration. - Patient Problems (1) SBO (small bowel obstruction) Code(s): K56.69 - OTHER INTESTINAL OBSTRUCTION SNOMED Code(s): 036905488 Comment: - Resolved. - Afebrile, leukocytosis resolved. - Surgery consult, input appreciated. - Pt has a hx of Ex-lap 06/29/15 where an obstructing $2 bill was identified. The coins that were seen on imaging prior were still present on repeat imaging 07/15. - KUB 08/02 shows foreign objects on right side, no bowel obstruction. - GI consult. S/P colonoscopy 08/03. - 08/04 Pt passed 3 Pennies today, no needle seen in stool. - Advance to a regular diet - Repeat ABD xray in the AM. (2) Pneumonia Code(s): J18.9 - PNEUMONIA, UNSPECIFIED ORGANISM SNOMED Code(s): 671544943 Comment: - Afebrile. Leukocytosis resolved. - Concern for aspiration PNA vs community acquired PNA. - Will switch from levaquin and Flagyl to Augmentin today (3) Electrolyte abnormality Code(s): E87.8 - OTH DISORDERS OF ELECTROLYTE AND FLUID BALANCE, NEC SNOMED Code(s): 490022887 Comment: - Hypomagnesium resolved after replacment - Hypokalemia, will give further KCL PO today and recheck labs in the AM. (4) HTN (hypertension) Code(s): I10 - ESSENTIAL (PRIMARY) HYPERTENSION SNOMED Code(s): 30334188 Comment: - SBP 130s-150s. - Resume amlodipine. (5) GERD (gastroesophageal reflux disease) Code(s): K21.9 - GASTRO-ESOPHAGEAL REFLUX DISEASE WITHOUT ESOPHAGITIS SNOMED Code(s): 947421811 Comment: Resume home omeprazole (6) Dementia Code(s): F03.90 - UNSPECIFIED DEMENTIA WITHOUT BEHAVIORAL DISTURBANCE SNOMED Code(s): 58234361 Comment: - Supportive care. Re-orient as needed. - May need SNF for closer monitoring as she ate foreign objects that possibly caused her obstruction. (7) Schizophrenia Code(s): F20.9 - SCHIZOPHRENIA, UNSPECIFIED SNOMED Code(s): 47953834 Comment: - Stable. Monitor. - Resume PO Haldol at HS (8) DVT prophylaxis Code(s): KCJ3009 - SNOMED Code(s): 175108265 Comment: Continue SQ heparin (9) Full code status Code(s): Z78.9 - OTHER SPECIFIED HEALTH STATUS SNOMED Code(s): 009490244 Status and Disposition: Inpatient. Estimated LOS > 2 days. Discharge back to the [facility] or [facility] when medically stable.
[2016-08-04] MEDS: Amoxicillin/Clavulanate TAB* 875 MG PO SCH (21:19)
[2016-08-04] MEDS: Haloperidol TAB* 1 MG PO SCH (21:19)
[2016-08-05] MEDS: Heparin VIAL(*) 5000 UNITS/ML VIAL (FIVE THOUSAND) SUBCUT SCH ×3 (05:42→21:46)
[2016-08-05 06:29] LABS: EGFR African American 101.1 (>60); EGFR Non-African American 78.6 (>60); Potassium 3.9 mmol/L (3.5-5.0)
[2016-08-05] MEDS: Amoxicillin/Clavulanate TAB* 875 MG PO SCH ×2 (09:02→21:45)
[2016-08-05] MEDS: Omeprazole CAP* 20 MG PO SCH (09:02)
[2016-08-05] MEDS: amLODIPine TAB* 5 MG PO SCH (09:03)
--- NOTE | 2016-08-05 11:50 | PN ---
Subjective Date of Service: 08/05/16 Interval History: Patient seen and examined at bedside. She is OOB to chair. She states, "No pain today." She does ask if she can have someone evaluate her neck and would like to see a therapist. She denies fever/chills, CP, SOB, abd pain, n/v. Family History: Unchanged from Admission Social History: Unchanged from Admission Past Medical History: Unchanged from Admission Objective Active Medications: Amlodipine Besylate (Norvasc Tab*) 10 mg PO DAILY [facility] Last Admin: 08/05/16 09:03 Dose: 10 mg Amoxicillin/Clavulanate Potassium (Augmentin Tab*) 875 mg PO BID [facility] Last Admin: 08/05/16 09:02 Dose: 875 mg Haloperidol (Haldol Tab*) 1 mg PO BEDTIME [facility] Last Admin: 08/04/16 21:19 Dose: 1 mg Heparin Sodium (Porcine) (Heparin Vial(*)) 5,000 units SUBCUT Q8HR [facility] Last Admin: 08/05/16 05:42 Dose: 5,000 units Heparin Sodium (Porcine) (Heparin Flush Picc/Ml/Cvc(*)) 1 - 3 ml FLUSH 0600, 1800 [facility] PRN Reason: Protocol Last Admin: 08/05/16 05:08 Dose: Not Given Morphine Sulfate (Morphine Inj (Syringe)*) 2 mg IV Q4H PRN PRN Reason: PAIN Last Admin: 08/03/16 12:15 Dose: 2 mg Omeprazole (Prilosec Cap*) 40 mg PO DAILY [facility] Last Admin: 08/05/16 09:02 Dose: 40 mg Vital Signs 08/04/16 08/04/16 08/04/16 15:31 20:00 23:29 Temperature 98.1 F 97.9 F Pulse Rate 77 79 Respiratory 17 16 16 Rate Blood Pressure 125/56 145/54 (mmHg) O2 Sat by Pulse 97 98 Oximetry Oxygen Devices in Use Now: None Appearance: Female patient, OOB to chair, in NAD Eyes: PERRLA Ears/Nose/Mouth/Throat: Clear Oropharnyx, Mucous Membranes Moist Neck: NL Appearance and Movements; NL JVP Respiratory: Symmetrical Chest Expansion and Respiratory Effort, Clear to Auscultation Cardiovascular: NL Sounds; No Murmurs; No JVD, RRR Abdominal: NL Sounds; No Tenderness; No Distention - mild tenderness to right abdomen with palpation Extremities: No Edema Skin: No Rash or Ulcers Neurological: - - Alert, oriented to person, place Lines/Tubes/Other Access: Clean, Dry and Intact Central Line - midline Nutrition: Taking PO's Result Diagrams: 08/04/16 05:53 08/05/16 05:37 Microbiology and Other Data: Microbiology 08/01/16 21:20 Stool Occult Blood (LAWANDA) - Final Stool 08/01/16 11:30 Nasal Screen MRSA (PCR)(LAWANDA) - Final Nasal Mrsa Negative Assess/Plan/Problems-Billing Assessment: Ms. Sorensen is am 85 yo female with PMH significant for dementia, CAD, HTN and schizophrenia who presented to [facility] with complaints of vomiting and abdominal pain who was found to have a small bowel obstruction likely secondary to foreign body ingestion and possible multilobar PNA with possible aspiration. - Patient Problems (1) SBO (small bowel obstruction) Code(s): K56.69 - OTHER INTESTINAL OBSTRUCTION Comment: - Resolved. Most recent KUB shows foreign objects on right side, no bowel obstruction. Appears needle has passed. - Afebrile, leukocytosis resolved. - Surgery consult, input appreciated. - Pt has a hx of Ex-lap 06/29/15 where an obstructing $2 bill was identified. The coins that were seen on imaging prior were still present on repeat imaging 07/15. - GI consult. S/P colonoscopy 08/03. - Pt passed 3 pennies on 08/04. - Regular diet (2) Pneumonia Code(s): J18.9 - PNEUMONIA, UNSPECIFIED ORGANISM Comment: - Afebrile. Leukocytosis resolved. - Concern for aspiration PNA vs community acquired PNA. - Continue Augmentin. (3) Electrolyte abnormality Code(s): E87.8 - OTH DISORDERS OF ELECTROLYTE AND FLUID BALANCE, NEC Comment: - Resolved. K+ and Mg+ WNL. (4) HTN (hypertension) Code(s): I10 - ESSENTIAL (PRIMARY) HYPERTENSION Comment: - SBP 120s-150s, continue amlodipine. (5) GERD (gastroesophageal reflux disease) Code(s): K21.9 - GASTRO-ESOPHAGEAL REFLUX DISEASE WITHOUT ESOPHAGITIS Comment : Continue home omeprazole. (6) Dementia Code(s): F03.90 - UNSPECIFIED DEMENTIA WITHOUT BEHAVIORAL DISTURBANCE Comment : - Supportive care. Re-orient as needed. - CM/SW looking for SNF for closer monitoring as she ate foreign objects that possibly caused her obstruction. (7) Schizophrenia Code(s): F20.9 - SCHIZOPHRENIA, UNSPECIFIED Comment: - Stable. Monitor. - Continue PO Haldol at HS (8) DVT prophylaxis Code(s): RJB6658 - Comment: - SQ heparin (9) Full code status Code(s): Z78.9 - OTHER SPECIFIED HEALTH STATUS Status and Disposition: Inpatient. Estimated LOS > 2 days. Discharge back to the [facility] or [facility] when medically stable.
--- NOTE | 2016-08-05 13:33 | RAD ---
INDICATION: Foreign bodies COMPARISON: August 03, 2016 TECHNIQUE: Erect and supine views of the abdomen are submitted. FINDINGS: Bones: There are no acute bony findings. Soft tissues: There are rounded foreign bodies projected over the hepatic flexure. The more distal foreign bodies have passed as has the enteric needle. Bowel gas pattern: Normal Calcifications: There are no abnormal calcifications. Other: None IMPRESSION: FOREIGN BODIES. SEVERAL FOREIGN BODIES PASSED INCLUDING AN ENTERIC NEEDLE.
[2016-08-05] MEDS: Haloperidol TAB* 1 MG PO SCH (21:46)
[2016-08-06] MEDS: Heparin VIAL(*) 5000 UNITS/ML VIAL (FIVE THOUSAND) SUBCUT SCH ×3 (05:50→21:06)
[2016-08-06] MEDS: Omeprazole CAP* 20 MG PO SCH (08:29)
[2016-08-06] MEDS: amLODIPine TAB* 5 MG PO SCH (08:29)
[2016-08-06] MEDS: Amoxicillin/Clavulanate TAB* 875 MG PO SCH ×2 (08:43→21:07)
--- NOTE | 2016-08-06 17:21 | PN ---
Subjective Date of Service: 08/06/16 Interval History: Patient seen and examined at bedside. Patient appeared to be sleeping but aroused when I knocked on the door. She reports, "I feel fine. They give me medicine. I'm okay." She denies CP, SOB, abd pain, n/v. She reports eating well. No nursing concerns expressed. Family History: Unchanged from Admission Social History: Unchanged from Admission Past Medical History: Unchanged from Admission Objective Active Medications: Amlodipine Besylate (Norvasc Tab*) 10 mg PO DAILY [facility] Last Admin: 08/06/16 08:29 Dose: 10 mg Amoxicillin/Clavulanate Potassium (Augmentin Tab*) 875 mg PO BID [facility] Last Admin: 08/06/16 08:43 Dose: 875 mg Haloperidol (Haldol Tab*) 1 mg PO BEDTIME [facility] Last Admin: 08/05/16 21:46 Dose: 1 mg Heparin Sodium (Porcine) (Heparin Vial(*)) 5,000 units SUBCUT Q8HR [facility] Last Admin: 08/06/16 14:56 Dose: 5,000 units Heparin Sodium (Porcine) (Heparin Flush Picc/Ml/Cvc(*)) 1 - 3 ml FLUSH 0600, 1800 [facility] PRN Reason: Protocol Last Admin: 08/06/16 05:51 Dose: 1 ml Morphine Sulfate (Morphine Inj (Syringe)*) 2 mg IV Q4H PRN PRN Reason: PAIN Last Admin: 08/03/16 12:15 Dose: 2 mg Omeprazole (Prilosec Cap*) 40 mg PO DAILY [facility] Last Admin: 08/06/16 08:29 Dose: 40 mg Vital Signs 08/05/16 08/05/16 08/05/16 19:11 20:00 23:36 Temperature 98.9 F 98.4 F Pulse Rate 88 92 Respiratory 16 18 20 Rate Blood Pressure 140/53 133/54 (mmHg) O2 Sat by Pulse 100 98 Oximetry 08/06/16 08/06/16 08/06/16 06:00 06:53 07:15 Temperature 98.3 F 97.6 F 98.3 F Pulse Rate 86 86 Respiratory 16 16 Rate Blood Pressure 138/62 141/59 (mmHg) O2 Sat by Pulse 96 96 Oximetry 08/06/16 08/06/16 08:00 15:10 Temperature 98.1 F Pulse Rate 85 Respiratory 16 16 Rate Blood Pressure 108/49 (mmHg) O2 Sat by Pulse 97 Oximetry Oxygen Devices in Use Now: None Appearance: Older female, lying in bed, in NAD Eyes: PERRLA Ears/Nose/Mouth/Throat: Clear Oropharnyx, Mucous Membranes Moist Neck: NL Appearance and Movements; NL JVP Respiratory: Symmetrical Chest Expansion and Respiratory Effort, Clear to Auscultation Cardiovascular: NL Sounds; No Murmurs; No JVD, RRR Abdominal: NL Sounds; No Tenderness; No Distention - mild tenderness with palpation Extremities: No Edema Skin: No Rash or Ulcers Neurological: - - Alert, oriented to self, place Lines/Tubes/Other Access: Clean, Dry and Intact Central Line - midline Nutrition: Taking PO's Result Diagrams: 08/04/16 05:53 08/05/16 05:37 Microbiology and Other Data: Microbiology 08/01/16 21:20 Stool Occult Blood (LAWANDA) - Final Stool 08/01/16 11:30 Nasal Screen MRSA (PCR)(LAWANDA) - Final Nasal Mrsa Negative Assess/Plan/Problems-Billing Assessment: Ms. Sorensen is am 85 yo female with PMH significant for dementia, CAD, HTN and schizophrenia who presented to [facility] with complaints of vomiting and abdominal pain who was found to have a small bowel obstruction likely secondary to foreign body ingestion and possible multilobar PNA with possible aspiration. - Patient Problems (1) SBO (small bowel obstruction) Code(s): K56.69 - OTHER INTESTINAL OBSTRUCTION Comment: - Resolved. Most recent KUB shows foreign objects on right side, no bowel obstruction. Appears needle has passed. - Afebrile, leukocytosis resolved. - Surgery consult, input appreciated. - Pt has a hx of Ex-lap 06/29/15 where an obstructing $2 bill was identified. The coins that were seen on imaging prior were still present on repeat imaging 07/15. - GI consult. S/P colonoscopy 08/03. - Pt passed 3 pennies on 08/04. - Regular diet (2) Pneumonia Code(s): J18.9 - PNEUMONIA, UNSPECIFIED ORGANISM Comment: - Afebrile. Leukocytosis resolved. - Concern for aspiration PNA vs community acquired PNA. - Continue Augmentin. (3) HTN (hypertension) Code(s): I10 - ESSENTIAL (PRIMARY) HYPERTENSION Comment: - SBP 100s-140s, continue amlodipine. (4) GERD (gastroesophageal reflux disease) Code(s): K21.9 - GASTRO-ESOPHAGEAL REFLUX DISEASE WITHOUT ESOPHAGITIS Comment : Continue home omeprazole. (5) Dementia Code(s): F03.90 - UNSPECIFIED DEMENTIA WITHOUT BEHAVIORAL DISTURBANCE Comment : - Supportive care. Re-orient as needed. - Plan for shelter placement for closer monitoring as she ate foreign objects that possibly caused her obstruction. (6) Schizophrenia Code(s): F20.9 - SCHIZOPHRENIA, UNSPECIFIED Comment: - Stable. Monitor. - Continue PO Haldol at HS (7) DVT prophylaxis Code(s): XDL8790 - Comment: - SQ heparin (8) Full code status Code(s): Z78.9 - OTHER SPECIFIED HEALTH STATUS Status and Disposition: Inpatient. Estimated LOS > 2 days. Discharge to [facility] when medically stable.
[2016-08-06] MEDS: Haloperidol TAB* 1 MG PO SCH (21:07)
[2016-08-07] MEDS: Heparin VIAL(*) 5000 UNITS/ML VIAL (FIVE THOUSAND) SUBCUT SCH (06:16)
[2016-08-07 07:28] VITALS: BP 139/62
[2016-08-07] MEDS: Amoxicillin/Clavulanate TAB* 875 MG PO SCH (08:02)
[2016-08-07] MEDS: Omeprazole CAP* 20 MG PO SCH (08:02)
[2016-08-07] MEDS: amLODIPine TAB* 5 MG PO SCH (08:02)
--- NOTE | 2016-08-07 09:38 | DCNOTE ---
Subjective Date of Service: 08/07/16 Interval History: Patient seen and examined at bedside. She reports "I'm feeling good, and I'm waiting for my sister to get here." She denies abd pain, n/v, chest pain, SOB. No nursing concerns. Tolerating regular PO intake. Family History: Unchanged from Admission Social History: Unchanged from Admission Past Medical History: Unchanged from Admission Objective Active Medications: Amlodipine Besylate (Norvasc Tab*) 10 mg PO DAILY [facility] Last Admin: 08/07/16 08:02 Dose: 10 mg Amoxicillin/Clavulanate Potassium (Augmentin Tab*) 875 mg PO BID [facility] Last Admin: 08/07/16 08:02 Dose: 875 mg Haloperidol (Haldol Tab*) 1 mg PO BEDTIME [facility] Last Admin: 08/06/16 21:07 Dose: 1 mg Heparin Sodium (Porcine) (Heparin Vial(*)) 5,000 units SUBCUT Q8HR [facility] Last Admin: 08/07/16 06:16 Dose: 5,000 units Heparin Sodium (Porcine) (Heparin Flush Picc/Ml/Cvc(*)) 1 - 3 ml FLUSH 0600, 1800 [facility] PRN Reason: Protocol Last Admin: 08/07/16 06:16 Dose: 1 ml Omeprazole (Prilosec Cap*) 40 mg PO DAILY [facility] Last Admin: 08/07/16 08:02 Dose: 40 mg Vital Signs 08/06/16 08/06/16 08/06/16 15:10 20:00 23:32 Temperature 98.1 F 97.9 F Pulse Rate 85 89 Respiratory 16 16 18 Rate Blood Pressure 108/49 123/55 (mmHg) O2 Sat by Pulse 97 96 Oximetry 08/07/16 08/07/16 07:15 07:21 Temperature 98.3 F Pulse Rate 86 Respiratory 16 16 Rate Blood Pressure 139/62 (mmHg) O2 Sat by Pulse 94 Oximetry Oxygen Devices in Use Now: None Appearance: Female patient, OOB to chair, in NAD Eyes: PERRLA Ears/Nose/Mouth/Throat: Clear Oropharnyx, Mucous Membranes Moist Neck: NL Appearance and Movements; NL JVP Respiratory: Symmetrical Chest Expansion and Respiratory Effort, Clear to Auscultation Cardiovascular: NL Sounds; No Murmurs; No JVD, RRR Abdominal: NL Sounds; No Tenderness; No Distention Extremities: No Edema Skin: No Rash or Ulcers Neurological: - - alert, oriented to self, place Lines/Tubes/Other Access: Clean, Dry and Intact Peripheral IV - midline Nutrition: Taking PO's Result Diagrams: 08/04/16 05:53 08/05/16 05:37 Microbiology and Other Data: Microbiology 08/01/16 21:20 Stool Occult Blood (LAWANDA) - Final Stool 08/01/16 11:30 Nasal Screen MRSA (PCR)(LAWANDA) - Final Nasal Mrsa Negative Assess/Plan/Problems-Billing Assessment: Ms. Sorensen is am 85 yo female with PMH significant for dementia, CAD, HTN and schizophrenia who presented to [facility] with complaints of vomiting and abdominal pain who was found to have a small bowel obstruction likely secondary to foreign body ingestion and possible multilobar PNA with possible aspiration. - Patient Problems (1) SBO (small bowel obstruction) Code(s): K56.69 - OTHER INTESTINAL OBSTRUCTION Comment: - Discussed patient with surgery and GI yesterday; no further treatment required - Per Dr. Preciado, it is felt that the lesions seen on her KUB on the right are not intraluminal anymore. - Resolved. Most recent KUB shows foreign objects on right side, no bowel obstruction. Appears needle has passed. - Afebrile, leukocytosis resolved. - Surgery consult, input appreciated. - Pt has a hx of Ex-lap 06/29/15 where an obstructing $2 bill was identified. The coins that were seen on imaging prior were still present on repeat imaging 07/15. - GI consult. S/P colonoscopy 08/03. - Pt passed 3 pennies on 08/04. - Tolerating regular diet (2) Pneumonia Code(s): J18.9 - PNEUMONIA, UNSPECIFIED ORGANISM Comment: - Afebrile. Leukocytosis resolved. - Concern for aspiration PNA vs community acquired PNA. - Continue Augmentin x 4 additional days. (3) HTN (hypertension) Code(s): I10 - ESSENTIAL (PRIMARY) HYPERTENSION Comment: - Normotensive, continue amlodipine. (4) GERD (gastroesophageal reflux disease) Code(s): K21.9 - GASTRO-ESOPHAGEAL REFLUX DISEASE WITHOUT ESOPHAGITIS Comment : Continue home omeprazole. (5) Dementia Code(s): F03.90 - UNSPECIFIED DEMENTIA WITHOUT BEHAVIORAL DISTURBANCE Comment : - Supportive care. Re-orient as needed. - Plan [place] [facility] for closer monitoring as she ate foreign objects that possibly caused her obstruction. (6) Schizophrenia Code(s): F20.9 - SCHIZOPHRENIA, UNSPECIFIED Comment: - Stable. Monitor. - Continue PO Haldol at HS (7) DVT prophylaxis Code(s): [id number] - Comment: - SQ heparin (8) Full code status Code(s): Z78.9 - OTHER SPECIFIED HEALTH STATUS Status and Disposition: Inpatient. Discharge to [facility].
--- NOTE | 2016-08-07 09:50 | TRS ---
TRANSFER SUMMARY: DATE OF ADMISSION: 07/30/16 DATE OF TRANSFER: 08/07/16 PROVIDER: Alexandria Ontiveros NP ATTENDING PHYSICIAN: Montserrat Machuca MD*(as dictated by Alexandria Ontiveros NP) CONSULTING PHYSICIANS: 1. Baljinder Hyde MD of Gastroenterology. 2. Sam Preciado MD of Surgery. PRIMARY DISCHARGE DIAGNOSES: 1. Small bowel obstruction. 2. History of foreign body ingestion. 3. Pneumonia, unclear if community acquired or aspiration mediated. SECONDARY DISCHARGE DIAGNOSES: 1. Hypertension. 2. Coronary artery disease. 3. Dementia. 4. Schizophrenia. 5. History of pulmonary embolism. 6. History of abdominal surgery as a child. 7. History of exploratory laparotomy with lysis of adhesions. 8. Removal of foreign body in June 2015. MEDICATIONS AT DISCHARGE: 1. Haloperidol 1 mg at bedtime. 2. Mylanta 1 to 2 teaspoons q.4 hours p.r.n. 3. Vitamin E capsules 400 units p.o. daily. 4. Senna one tab daily. 5. Omeprazole 40 mg daily. 6. Ibuprofen 600 mg q.6 hours p.r.n. 7. Ferrous sulfate 325 mg t.i.d. 8. Amlodipine 10 mg daily. 9. Augmentin 875 mg b.i.d., x4 more days to complete 5 days of oral antibiotics in addition to previous IV therapy. HOSPITAL COURSE OF STAY: For full details, please refer to the H and P provided by Estrella Magallanes NP on 07/30/16. In summary, Ms. Sorensen is an 85-year- old female with a past medical history as stated above, who presented to the ED with complaints of abdominal pain, nausea, and vomiting. It was noted that in June 2015, the patient had laparoscopic surgery for a small bowel obstruction at which time a rolled up two-dollar bill was removed. The CT scan also showed what appeared to be several coins in the bowel as well, but these could not be identified during the surgery and was felt that they would most likely pass on their own. The patient was previously at [facility] and it was reported that she was vomiting there and they took her to [facility] where a CT scan showed concern for multilobar pneumonia and a small bowel obstruction concerning for the presence of foreign body such as coins. The patient also had a white blood cell count of 23,000. She was transferred to [facility] for further evaluation and admitted and evaluated by surgery. For the pneumonia, the patient was started on Levaquin and Flagyl. Due to concern for aspiration, the patient was started with an NG tube and evaluated by surgery who recommended a colonoscopy prior to surgical intervention. The procedure report from the patient's colonoscopy showed left colonic diverticulosis with scarring, ingested pennies which were removed from the cecum and deposited in the sigmoid for further monitoring via periodic x-rays. There was also an ingested needle that was seen and moved to the sigmoid for further monitoring with x-rays. These foreign bodies were unable to be removed during the procedure. The patient was started on a full liquid diet following this, and had serial abdominal x-rays. It did not appear evident if the patient 's critical illness and presentation was due to the foreign bodies or her pneumonia. The patient was responding well to antibiotics in any case, and her white blood cell count and CRP were decreasing with antibiotic treatment this continued to occur. The patient reportedly got better and was able to advance her diet to regular food which she has been tolerating well. She has not required any IV pain medication since the . The most recent KUB on showed rounded foreign bodies projected over the hepatic flexure, but the more distal foreign bodies have passed as has the enteric needle. Staff had noted that three pennies were seen in the patient's stool; however, the needle was not visualized in stool but is no longer seen on the x-ray. I did speak with Dr. Preciado of Surgery regarding the 2 foreign bodies seen over the hepatic flexure, and he feels that these are no longer intraluminal and does not require surgical intervention. I spoke with Dr. Gavin of GI who feels that there are no other interventions that are necessary at this time and that the patient is safe for discharge. There was concern about having her return to the [facility] given that she had ingested these foreign bodies and attended at the facility, so placement was obtained at the [facility]. Prior to discharge, the patient was tolerating regular diet and denies pain, nausea, or vomiting. She is not requiring p.r.n. medication. She has been afebrile since her admission and her white blood cell count has normalized. The patient received three days of IV antibiotics, and has been switched to Augmentin which we will continue for a 5-day course. There is no recommended followup for Surgery or GI at this time, but they are available if the patient requires them in the future. Patient should follow up with her PCP or the facility physician. CONCERNS AT DISCHARGE: The patient will be discharged to [facility] on 08/07/16. DIET: Heart-healthy diet. ACTIVITY: As tolerated. CONDITION: Stable. DISPOSITION: To [facility]. TIME SPENT: Time spent on this discharge was approximately 45 minutes. Again, this is only a brief summary of the patient's hospital course of stay. For full details, please refer to the full medical record. If you have any further questions, please feel free to contact me at [place] [id number]/CPS #: [id number] VENU
== END 2016-08-07 12:45 | DRG 393 ==
LOC: MED 18:03
PROVIDERS: ADMIT Internal Medicine; ATTEND Internal Medicine
PROC: 0D9670Z Drainage of Stomach with Drainage Device, Via Natural or Artificial Opening (ICD-10-PCS; 2016-07-31)
PROC: 0DCH8ZZ Extirpation of Matter from Cecum, Via Natural or Artificial Opening Endoscopic (ICD-10-PCS; principal; 2016-08-03)
PROC: 02HV33Z Insertion of Infusion Device into Superior Vena Cava, Percutaneous Approach (ICD-10-PCS; 2016-08-04)
DX: T18.4XXA Foreign body in colon, initial encounter (principal); J69.0 Pneumonitis due to inhalation of food and vomit; K56.69 Other intestinal obstruction; F03.90 Unspecified dementia, unspecified severity, without behavioral disturbance, psychotic disturbance, mood disturbance, and anxiety; I11.9 Hypertensive heart disease without heart failure; X58.XXXA Exposure to other specified factors, initial encounter; I25.10 Atherosclerotic heart disease of native coronary artery without angina pectoris; F20.9 Schizophrenia, unspecified; K21.9 Gastro-esophageal reflux disease without esophagitis; E83.42 Hypomagnesemia; E87.6 Hypokalemia; K57.30 Diverticulosis of large intestine without perforation or abscess without bleeding; Y92.099 Unspecified place in other non-institutional residence as the place of occurrence of the external cause; Z88.6 Allergy status to analgesic agent; Z86.711 Personal history of pulmonary embolism; Z79.899 Other long term (current) drug therapy; Z79.1 Long term (current) use of non-steroidal anti-inflammatories (NSAID)
CPT/HCPCS: 36415; 74020; 80048; 80053; 80076; 82272; 83735; 85025; 85027; 86140; 87641; A9270-GY; J1630; J1644; J2175; J2250; J2270; J3475; J3480; J3490